=== PATIENT | female | born 1985 | race Caucasian/White ===

== ENCOUNTER 2016-06-25 14:35 | Emergency (ER) | payer BC, OTHER ==
[2016-06-25 15:31] VITALS: BP 164/120
--- NOTE | 2016-06-25 16:03 | EDM.PDOC ---
ED HPI GENERAL MEDICAL PROBLEM - General Chief Complaint: General Stated Complaint: STUCK BY SAFETY PIN, WORKS AT [employer] Time Seen by Provider: 06/25/16 15:50 Source of Information: Reports: Patient, RN notes reviewed History Limitations: Reports: No limitations - History of Present Illness INITIAL COMMENTS - FREE TEXT/NARRATIVE: 30-year-old female presents to emergency department today following a needle stick exposure at work she was accidentally stuck by a safety pin that holds on a JOANNA drain right ring finger, she immediately washed the wound with soap and water and alcohol - Related Data Allergies Allergy/AdvReac Type Severity Reaction Status Date / Time No Known Allergies Allergy Verified 06/25/16 15:27 Home Meds: Home Meds NK [No Known Home Meds] 05/03/14 [History] Past Medical History - Past Health History Medical/Surgical History: Denies Medical/Surgical History Social & Family History - Tobacco Use Smoking Status *Q: Never Smoker Second Hand Smoke Exposure: No - Caffeine Use Caffeine Use: Reports: Tea - Alcohol Use Days Per Week of Alcohol Use: 0 - Recreational Drug Use Recreational Drug Use: No ED ROS GENERAL - Review of Systems Review Of Systems: See Below Constitutional: Reports: no symptoms Skin: Reports: wound ED EXAM, GENERAL - Physical Exam Exam: See Below Free Text/Narrative:: Examination the right ring finger nor abnormality can be appreciated Exam Limited By: No limitations General Appearance: alert, WD/WN, no apparent distress Respiratory/Chest: no respiratory distress Course - Vital Signs Last Recorded V/S: Last Vital Signs Temp 97.7 F 06/25/16 15:26 Pulse 74 06/25/16 15:31 Resp 16 06/25/16 15:31 BP 164/120 H 06/25/16 15:31 Pulse Ox 100 06/25/16 15:31 - Orders/Labs/Meds Orders: Active Orders 24 hr Category Date Time Status HBS AB [REF] Urgent Lab 06/25/16 15:54 Ordered HEPATITIS B SURFACE ANTIGEN [REF] Urgent Lab 06/25/16 15:54 Ordered HEPATITIS C ANTIBODY [REF] Urgent Lab 06/25/16 15:54 Ordered HIV 1/2 AB RFLX TO SUPPL [REF] Urgent Lab 06/25/16 15:54 Ordered HIV RAPID SCREEN [CHEM] Urgent Lab 06/25/16 15:54 Ordered Departure - Departure Time of Disposition: 16:03 Disposition: Home, Self-Care 01 Condition: good Clinical Impression: Needle exposure Qualifiers: Encounter type: initial encounter Qualified Code(s): X58.XXXA - Exposure to other specified factors, initial encounter Forms: ED Department Discharge Additional Instructions: Please followup with your primary care provider in 3-5 days if not better, please call return to the emergency department with worsening of symptoms. - My Orders Last 24 Hours: My Active Orders 06/25/16 15:54 HBS AB [REF] Urgent HEPATITIS B SURFACE ANTIGEN [REF] Urgent HEPATITIS C ANTIBODY [REF] Urgent HIV 1/2 AB RFLX TO SUPPL [REF] Urgent HIV RAPID SCREEN [CHEM] Urgent - Assessment/Plan Last 24 Hours: My Active Orders 06/25/16 15:54 HBS AB [REF] Urgent HEPATITIS B SURFACE ANTIGEN [REF] Urgent HEPATITIS C ANTIBODY [REF] Urgent HIV 1/2 AB RFLX TO SUPPL [REF] Urgent HIV RAPID SCREEN [CHEM] Urgent Plan: Assessment Acuity = acute Site and laterality = needlestick exposure Etiology = safety pin on a JOANNA drain Manifestations = none Location of injury = work Lab values = lab workup HIV, hepatitis B hepatitis C pending source also drawn same labs Plan Will be contacted with results become available okay to return to work Patient was in agreement with the plan all questions were answered, they were instructed to return to the emergency department or call for worsening symptoms. This note was dictated using [employer] voice recognition software please call with any questions.
== END 2016-06-25 16:32 | disposition home or self-care (01) ==
LOC: JP.ED 14:35
DX: S60.944A Unspecified superficial injury of right ring finger, initial encounter (principal); W46.0XXA Contact with hypodermic needle, initial encounter
CPT/HCPCS: 36415; 86706; 86803; 87340; 87449; 99281; 99283

== ENCOUNTER 2023-12-15 08:26 | Emergency (ER) | payer BC ==
[2023-12-15 09:46] LABS: BASOPHILS ABSOLUTE AUTO 0.03 K/uL (0.00-0.10); BASOPHILS PERCENT AUTO 0.4 % (0.1-1.3); EOSINOPHILS ABSOLUTE AUTO 0.12 K/uL (0.00-0.40); EOSINOPHILS PERCENT AUTO 1.7 % (0.0-5.4); HEMATOCRIT 36.8 % (34.3-46.0); HEMOGLOBIN 12.2 g/dL (11.2-15.5); IMMATURE GRAN ABSOLUTE AUTO 0.04 K/uL (0.00-0.23); IMMATURE GRAN PERCENT AUTO 0.6 % (0.0-0.7); LYMPHOCYTES ABSOLUTE AUTO 1.13 K/uL (0.8-3.3); LYMPHOCYTES PERCENT AUTO 16.2 % (11.4-47.7); MEAN CORPUSCULAR HEMOGLOBIN 29.3 pg (31.6-35.5); MEAN CORPUSCULAR HGB CONC 33.2 g/dL (31.6-35.5); MEAN CORPUSCULAR VOLUME 88.5 fL (81.4-99.0); MONOCYTES ABSOLUTE AUTO 0.47 K/uL (0.20-0.90); MONOCYTES PERCENT AUTO 6.8 % (3.3-12.6); NEUTROPHILS ABSOLUTE AUTO 5.17 K/uL (1.0-7.6); NEUTROPHILS PERCENT AUTO 74.3 % (40.0-78.1); PLATELET COUNT,PLT 315 K/uL (130-375); RED BLOOD CELL COUNT 4.16 M/uL (3.77-5.24)
[2023-12-15] MEDS: Sodium Chloride 0.9% 10 ML Syringe FLUSH ONE (10:00)
[2023-12-15] MEDS: Sodium Chloride 0.9% 100 ML IV SCH (10:00)
[2023-12-15] MEDS: Iopamidol 612 MG/ML 100 ML Bottle IV PRN (10:00)
[2023-12-15 10:06] LABS: ALANINE AMINOTRANSFERASE,ALT 17 U/L (12-78); ALBUMIN 3.5 g/dL (3.4-5.0); ALKALINE PHOSPHATASE 37 U/L (46-116); ASPARTATE AMNIOTRANSFERASE,AST 15 U/L (15-37); BILIRUBIN TOTAL 0.4 mg/dL (0.2-1.0); BLOOD UREA NITROGEN,BUN 17 mg/dL (7-18); CALCIUM 8.9 mg/dL (8.5-10.1); CARBON DIOXIDE,CO2 26 mmol/L (21-32); CHLORIDE,CL 103 mmol/L (100-108); CREATININE 0.9 mg/dL (0.6-1.0); ESTIMATED GFR 83 mL/min (>60); GLUCOSE RANDOM 90 mg/dL (74-106); SODIUM,NA 136 mmol/L (140-148)
[2023-12-15] MEDS: Sodium Chloride 0.9% 1,000 ML IV SCH (10:07)
[2023-12-15] MEDS: Ketorolac 30 MG/ML SDV IVPUSH ONE (10:08)
[2023-12-15 10:49] LABS: APPEARANCE,URINE CLEAR (CLEAR); BILIRUBIN,URINE NEGATIVE (NEGATIVE); COLOR,URINE YELLOW (YELLOW); GLUCOSE,URINE NEGATIVE (NEGATIVE); KETONES,URINE NEGATIVE (NEGATIVE); LEUKOCYTE ESTERASE,URINE SMALL (NEGATIVE); NITRITE,URINE NEGATIVE (NEGATIVE); OCCULT BLOOD,URINE TRACE-INTACT (NEGATIVE); PROTEIN,URINE NEGATIVE (NEGATIVE); UROBILINOGEN,URINE 0.2 EU/dL (0.2-1.0)
[2023-12-15 10:55] LABS: AMORPHOUS SEDIMENT,URINE NOT SEEN; BACTERIA,URINE FEW; EPITHELIAL CELLS,URINE MODERATE; MUCUS,URINE NOT SEEN; RBC,URINE 0-5 (0-5)
[2023-12-15 10:59] VITALS: BP 108/64; PULSE 70
== END 2023-12-15 11:52 | disposition home or self-care (01) ==
LOC: JP.ED 08:26
DX: R10.84 Generalized abdominal pain (principal); J45.909 Unspecified asthma, uncomplicated; Z79.899 Other long term (current) drug therapy
CPT/HCPCS: 36415; 74177; 80053; 81001; 81025; 83690; 85025; 96361; 96374; 99284; J1885; J3490; J7030; Q9967